=== PATIENT | female | born 1945 | race African-American/Black ===

== ENCOUNTER → 2021-06-24 | Outpatient (CLI) | payer OTHER | LOC: US 08:32 | PROVIDERS: ATTEND Family Medicine | DX: K75.81 Nonalcoholic steatohepatitis (NASH) (principal) | CPT/HCPCS: 76705 ==

== ENCOUNTER 2022-05-18 06:35 | Observation (INO) | payer OTHER ==
[2022-05-17 11:03] LABS: BASOPHILS % 0.5 % (0.0-1.0); EOSINOPHILS # (AUTO) 0.2 (0.0-0.4); EOSINOPHILS % 3.9 % (0.0-6.0); HEMATOCRIT 46.3 % (34.2-44.1); HEMOGLOBIN 14.9 g/dL (12.0-16.0); LYMPHOCYTES # (AUTO) 2.1 (1.0-3.2); LYMPHOCYTES % 36.5 % (18.0-39.1); MEAN CORPUSCULAR HEMOGLOBIN 29.2 pg (28-32); MEAN CORPUSCULAR HGB CONC 32.2 g/dL (31-35); MEAN CORPUSCULAR VOLUME 90.8 fL (81-99); MONOCYTES # (AUTO) 0.7 (0.2-0.8); NEUTROPHILS # (AUTO) 2.7 (2.1-6.9); NEUTROPHILS % 46.8 % (38.7-80.0); PLATELET COUNT 275 x10e3/uL (140-360); RED CELL DISTRIBUTION WIDTH 12.9 % (11.7-14.4)
[2022-05-17 11:17] LABS: INR 0.96; PARTIAL THROMBOPLASTIN TIME 27.1 seconds (23.8-35.5); PROTHROMBIN TIME 13.7 seconds (11.9-14.5)
[~2022-05-18] VITALS: Ht 154.9 cm; Wt 95.3 kg
[~2022-05-18 06:35] MED LIST: ASPIRIN81 MG PO; CARVEDILOL3.125 MG PO; CELECOXIB 200 MG CAP ONE; CRESTOR10 MG PO; DEXAMETHASONE SOD PHOS 10 MG/1 ML VIAL ONE; ELIQUIS2.5 MG PO; GABAPENTIN 300 MG CAP ONE; IRON325 M1 PO; LEXAPRO5 MG PO; SODIUM CHLORIDE 0.9% 500ML 500 ML ONE; TRANEXAMIC ACID 20 ML ONE; ULTRAM50 MG PO; Vancomycin IV 1,000 MG ONE
[2022-05-18] MEDS ORDERED: ROPIVACAINE 246.25 MG, EPINEPHRINE HCL 1:1000 1ML 0.5 MG, CLONIDINE HCL 0.08 MG, KETORO... INJ ONE ×5 (08:00)
[2022-05-18] MEDS ORDERED: HYDROCODONE/APAP 7.5MG-325MG 1 EA TAB PO PRN (09:00)
[2022-05-18] MEDS ORDERED: DIPHENHYDRAMINE HCL INJ 50 MG/ML VIAL IV PRN (09:00)
[2022-05-18] MEDS ORDERED: ZOLPIDEM TARTRATE 5 MG TAB PO PRN (09:00)
[2022-05-18] MEDS ORDERED: DOCUSATE SODIUM 100 MG CAP PO PRN (09:00)
[2022-05-18] MEDS ORDERED: ACETAMINOPHEN 650 MG SUPP PR PRN (09:00)
[2022-05-18] MEDS ORDERED: ONDANSETRON HCL INJ 2MG/ML 2ML 2 MG/ML VIAL IV PRN (09:00)
[2022-05-18] MEDS ORDERED: HYDROCODONE/APAP 5MG-325MG TAB PO PRN (09:00)
[2022-05-18] MEDS ORDERED: FENTANYL CITRATE/PF 100MCG/2 ML INJ ONE (12:48)
[2022-05-18] MEDS ORDERED: MIDAZOLAM HCL 2 MG/2 ML VIAL ONE (12:48)
[2022-05-18] MEDS ORDERED: KETAMINE HCL INJ 50 MG/ML 10 ML VIAL ONE (12:48)
[2022-05-18] MEDS ORDERED: SODIUM CHLORIDE 0.9% 1000ML 1,000 ML IV SCH (13:00)
[2022-05-18 13:10] VITALS: BP 123/58
[2022-05-18 13:30] VITALS: BP 117/58
[2022-05-18] MEDS ORDERED: LIDOCAINE HCL 2% LOCAL 20 ML VIAL ONE (13:31)
[2022-05-18] MEDS ORDERED: BUPIVACAINE 0.25% 30ML SDV ONE (13:31)
[2022-05-18] MEDS ORDERED: SODIUM CHLORIDE 0.9% 100 ML ONE (13:48)
[2022-05-18] MEDS ORDERED: ASPIRIN 325 MG TAB PO SCH (17:00)
[2022-05-18] MEDS ORDERED: CELECOXIB 200 MG CAP PO SCH (17:00)
[2022-05-18 17:01] VITALS: BP 149/82
[2022-05-18] MEDS ORDERED: SEVOFLURANE INHAL SOLN 250 ML PEN BTL ONE (17:07)
[2022-05-18] MEDS ORDERED: ONDANSETRON HCL INJ 2MG/ML 2ML 2 MG/ML VIAL ONE (17:07)
[2022-05-18] MEDS ORDERED: POVIDONE IODINE 0.05% 0.05 % ML PO ONE (17:07)
[2022-05-18] MEDS ORDERED: LIDOCAINE HCL 2% LOCAL INJ 5 ML SDV VIAL INJ ONE (17:07)
[2022-05-18] MEDS ORDERED: PROPOFOL IV EMULSION 10 MG/ML 20 ML VIAL ONE (17:07)
[2022-05-19] MEDS ORDERED: ACETAMINOPHEN 1000 MG/100 ML IV PRN (09:00)
== END 2022-05-18 18:44 | disposition home or self-care (01) ==
LOC: OR 06:35 → PACU V 08:57 → MED/SURG 12:29
PROVIDERS: ADMIT Specialist; ATTEND Specialist
DX: M17.0 Bilateral primary osteoarthritis of knee (principal); Z86.718 Personal history of other venous thrombosis and embolism; Z79.01 Long term (current) use of anticoagulants; Z20.822 Contact with and (suspected) exposure to COVID-19; Z86.711 Personal history of pulmonary embolism
CPT/HCPCS: 0223U; 36415; 71046; 85025; 85610; 85730; 86850; 86900; 86920; 93005; 94799; C1713; G0378; J0171; J0690; J1100; J1885; J2001; J2250; J2405; J2795; J3010; J3370; J7040; J7050